=== PATIENT | male | born 1975 | race Caucasian/White ===

== ENCOUNTER 2021-02-08 20:26 | Emergency (ER) | payer SELFPAY ==
[~2021-02-08] VITALS: Ht 185.4 cm; Wt 97.5 kg
[2021-02-08 21:57] LABS: HEMOGLOBIN 16.6 gm/dl (14.0-17.5); RED BLOOD COUNT 5.05 M/UL (4.20-5.50); WHITE BLOOD COUNT 15.1 K/UL (4.5-11.0)
[2021-02-08 22:21] LABS: BUN/CREATININE RATIO 14 (0-10)
[2021-02-09] MEDS ORDERED: TOPROL XL25 MG PO (12:25)
[2021-02-09] MEDS ORDERED: ECOTRIN81 MG PO ×2 (12:25→12:31)
== END 2021-02-09 12:53 | disposition home or self-care (01) ==
LOC: ER1 20:26 → CDU 02-09
PROVIDERS: Family Medicine
DX: I47.1 Supraventricular tachycardia (principal); R77.8 Other specified abnormalities of plasma proteins; Z20.822 Contact with and (suspected) exposure to COVID-19
CPT/HCPCS: ECHO; 71045; 80053; 82550; 82553; 83735; 83874; 83880; 84439; 84443; 84484; 85025; 93005; 93306; 96374; 99285; J0153; U0002